=== PATIENT | male | born 1995 | race Caucasian/White ===

== ENCOUNTER 2017-03-25 18:57 | Inpatient (IN) ==
[~2017-03-25 18:57] MED LIST: Aminoglycoside Consult 1 EACH MC ONE
--- NOTE | 2017-03-25 19:20 | Emergency Department Note ---
Disposition Clinical Impression: Abscess, Lymphangitis, Abscess of skin or subcutaneous tissue Cellulitis Qualifiers: Site of cellulitis: extremity Site of cellulitis of extremity: upper extremity Laterality: left Qualified Code(s): L03.114 - Cellulitis of left upper limb Disposition: Admitted As Inpatient Condition: Fair Skin/Abscess/FB HPI Chief complaint: ED Skin/Abscess/Foreign Body Stated complaint: Abscess on L forearm Time Seen by Provider: 03/25/17 19:09 Source: patient, family Limitations: no limitations HPI Narrative: Patient is a 21-year-old male who comes in with 4 day history of left forearm abscess. Patient was seen on 03/23/2017 for left forearm abscess. He was treated with clindamycin by mouth and mupirocin topical ointment. Patient states that the cellulitis has worsened since Saturday. He admits that he is taking his clindamycin as prescribed. Patient complains that cellulitis is now streaking up the arm to mid-upper arm. He complains of left arm pain and stiffness to the biceps muscle. Patient admits that he attempted to drain the abscess using a pocket knife. Patient admits that he has had a recent tetanus shot. Denies fever, chills, nausea, vomiting. Patient denies any limitation to movement of the elbow joint. Tetanus Up to Date: yes Home Medications Medication Instructions Recorded Confirmed Mupirocin [Bactroban Oint] 1 appl TP BID 03/25/17 03/25/17 Previous Rx's Medication Instructions Recorded Clindamycin HCl 300 mg PO TID #21 capsule 03/23/17 Allergies Allergy/AdvReac Type Severity Reaction Status Date / Time No Known Allergies Allergy Verified 03/25/17 18:59 All systems ED: reviewed and negative except as stated. Constitutional: Reports: as per HPI Eyes: Reports: as per HPI ENT ED: Reports: as per HPI Cardiovascular: Reports: as per HPI Respiratory: Reports: as per HPI Gastrointestinal: Reports: as per HPI Genitourinary: Reports: as per HPI Musculoskeletal: Reports: as per HPI Integumentary: Reports: as per HPI Neurological: Reports: as per HPI Psychiatric: Reports: as per HPI Endocrine: Reports: as per HPI Hematological/Lymphatic: Reports: as per HPI Allergic/Immunologic: Reports: as per HPI Past Medical History - Past Medical History Medical history: Reports: no medical history Psychiatric history: Reports: no psych history - Social History Smoking Status: Former smoker Smokeless Tobacco Status: Yes Alcohol use: Reports: none Drug use: Reports: marijuana Physical Exam - General Limitations: no limitations General appearance: alert, in no apparent distress - Head Head exam: atraumatic, normocephalic, normal inspection - Eye Eye exam: Present: normal appearance, EOMI - ENT ENT exam: mucous membranes moist - Neck Neck exam: Present: normal inspection, full ROM, trachea midline. Absent: tenderness, lymphadenopathy, thyromegaly - Chest Chest inspection: Present: normal inspection, symmetric chest wall rise. Absent : tenderness, rash - Respiratory Respiratory exam: Present: normal lung sounds bilaterally. Absent: respiratory distress, wheezes, stridor, accessory muscle use - Cardiovascular Cardiovascular exam: Present: regular rate, normal rhythm, +S1, +S2. Absent: systolic murmur, diastolic murmur - Abdominal Exam Abdominal exam: Present: soft, Non-Tender, normal bowel sounds. Absent: distention, guarding, rebound - Extremities Exam Extremities exam: Present: full ROM - Expanded Lower Extremity Exam Hip/Pelvis exam: Present: full ROM Upper leg exam: Present: full ROM Knee exam: Present: full ROM Lower leg exam: Present: full ROM Ankle exam: Present: full ROM Foot/toe exam: Present: full ROM Neurovascular/Tendon exam: Present: normal capillary refill - Neurological Exam Neurological exam: Present: oriented X3, CN II-XII intact - Psychiatric Psychiatric exam: Present: normal affect, normal mood Course Vital Signs Temperature 99.5 F 03/25/17 18:59 Pulse Rate 72 03/25/17 18:59 Respiratory Rate 15 03/25/17 18:59 Blood Pressure 144/84 03/25/17 18:59 O2 Sat by Pulse Oximetry 98 03/25/17 18:59 Temperature 98.6 F 03/25/17 21:48 Pulse Rate 66 03/25/17 21:48 Respiratory Rate 15 03/25/17 21:48 Blood Pressure 121/71 03/25/17 21:48 O2 Sat by Pulse Oximetry 99 03/25/17 21:48 Oxygen Delivery Oxygen Delivery Room Air Skin/Abscess/Foreign Body - Lab Data Result diagrams: 03/25/17 19:55 03/25/17 19:55 Lab Results 03/25/17 03/25/17 Range/Units 19:55 19:55 WBC 10.0 (4.3-11.1) K/mcL RBC 5.08 (4.19-5.50) M/mcL Hgb 15.2 (12.9-16.9) g/dL Hct 43.4 (37.5-50.1) % MCV 85.4 (83.0-100.0) fL MCH 29.9 (28.0-33.3) pg MCHC 35.0 (31.6-35.5) g/dL RDW 11.8 (11.5-14.5) % Plt Count 240 (140-400) K/mcL MPV 9.1 L (9.4-12.4) fL Immature Gran % 0.2 (0-4) % Seg Neutrophils % 67.0 % Lymphocytes % 23.1 % Monocytes % 8.1 % Eosinophils % 1.3 % Basophils % 0.3 % Neutrophils # 6.7 (1.6-8.9) K/mcL Lymphocytes # 2.3 (0.6-4.6) K/mcL Monocytes # 0.8 (0.0-1.3) K/mcL Eosinophils # 0.1 (0.0-0.6) K/mcL Basophils # 0.0 (0.0-0.2) K/mcL Sodium 141 (136-145) mEq/L Potassium 3.5 (3.5-4.5) mEq/L Chloride 106 (98-109) mEq/L Carbon Dioxide 26 (19-29) mEq/L BUN 10 (8-26) mg/dL Creatinine 0.94 (0.72-1.25) mg/dL Est GFR ( Amer) > 60 (> 60) Est GFR (Non-Af Amer) > 60 (> 60) BUN/Creatinine Ratio 11 (6-26) Glucose 97 (70-99) mg/dL Calculated Osmolality 291 (280-300) Calcium 9.5 (8.6-10.8) mg/dL
--- NOTE | 2017-03-25 19:42 | Emergency Department Note ---
Disposition Clinical Impression: Abscess, Lymphangitis, Abscess of skin or subcutaneous tissue Cellulitis Qualifiers: Site of cellulitis: extremity Site of cellulitis of extremity: upper extremity Laterality: left Qualified Code(s): L03.114 - Cellulitis of left upper limb Disposition: Admitted As Inpatient Condition: Fair Instructions: Cellulitis (ED), Abscess Follow-up (ED) Time of Disposition: 22:00 General Adult HPI - General Chief complaint: ED Skin/Abscess/Foreign Body Stated complaint: Abscess on L forearm Time Seen by Provider: 03/25/17 19:09 Source: patient, family Mode of arrival: ambulatory Limitations: no limitations Nursing Notes Reviewed: Yes Vital Signs Reviewed: Yes - History of Present Illness Pain Scale: 7 - Related Data Home Medications Medication Instructions Recorded Confirmed Mupirocin [Bactroban Oint] 1 appl TP BID 03/25/17 03/25/17 Previous Rx's Medication Instructions Recorded Clindamycin HCl 300 mg PO TID #21 capsule 03/23/17 Allergies Allergy/AdvReac Type Severity Reaction Status Date / Time No Known Allergies Allergy Verified 03/25/17 18:59 Past Medical History - Past Medical History Medical history: Reports: no medical history Psychiatric history: Reports: no psych history - Social History Smoking Status: Former smoker Smokeless Tobacco Status: Yes Alcohol use: Reports: none Drug use: Reports: marijuana Physical Exam - General Limitations: no limitations General appearance: alert, in no apparent distress - Head Head exam: atraumatic, normocephalic, normal inspection - Eye Eye exam: Present: normal appearance, EOMI - ENT ENT exam: normal exam - Neck Neck exam: Present: normal inspection, full ROM, trachea midline. Absent: tenderness, lymphadenopathy - Chest Chest inspection: Present: normal inspection, symmetric chest wall rise. Absent : tenderness, rash - Respiratory Respiratory exam: Present: normal lung sounds bilaterally. Absent: respiratory distress, wheezes - Cardiovascular Cardiovascular exam: Present: regular rate, normal rhythm, +S1, +S2. Absent: systolic murmur, diastolic murmur - Abdominal Exam Abdominal exam: Present: soft, Non-Tender. Absent: distention, guarding - Extremities Exam Extremities exam: Present: full ROM - Expanded Upper Extremity Exam Shoulder exam: Present: full ROM Arm exam: Present: full ROM, tenderness, swelling (swelling present to left extensor forearm. all arm compartments are soft. ), erythema (3cm x 2.5 cm abscess with surrounding erythema and streaking to left extensor forearm. erythema is 14cm at longest dimension in superior-inferior dimension and 12cm in width. ) Elbow exam: Present: full ROM Forearm/Wrist exam: Present: full ROM Hand exam: Present: full ROM Vascular exam: Normal: capillary refill Course Vital Signs Temperature 99.5 F 03/25/17 18:59 Pulse Rate 72 03/25/17 18:59 Respiratory Rate 15 03/25/17 18:59 Blood Pressure 144/84 03/25/17 18:59 O2 Sat by Pulse Oximetry 98 03/25/17 18:59 Temperature 99.5 F 03/25/17 18:59 Pulse Rate 72 03/25/17 18:59 Respiratory Rate 14 03/25/17 21:30 Blood Pressure 130/79 03/25/17 21:30 O2 Sat by Pulse Oximetry 98 03/25/17 18:59 Oxygen Delivery Oxygen Delivery Room Air Procedures - Abscess I/D Consent obtained: verbal consent Site: other (left arm abscess) Side (if applicable): left Local Anesthetic: lidocaine 1%, with epi Amount of Anesthesia Used (mL): 8 Technique: incised with #11 blade Irrigation: No Packing used?: none Complications: bleeding (minimal bleeding, approximately 2mL with purulent drainage) Medical Decision Making - MDM Narrative Medical decision making narrative: Patient presented with increasing cellulitis with lymphangitis to left extensor forearm. Patient states that yesterday he tried to open the abscess with a pocket knife. He has been compliant with oral clindamycin, however he has had worsening cellulitis and lymphangitis despite outpatient therapy. Patient has been afebrile. Abscess was treated with incision and drainage. Since A should not is failed outpatient therapy we will admit him for IV vancomycin. Blood and wound cultures have been obtained. Patient is in stable condition. - Medical Records Medical records reviewed: Yes I reviewed the patient's medical records. - Lab Data Lab results reviewed: Yes I reviewed the patient's lab results. Result diagrams: 03/25/17 19:55 03/25/17 19:55 Attestation Statement - Attestation Attestation: I personally interviewed and examined this patient and my medical decision- making was reviewed with the Resident Physician, Dr. Mcbride. I agree with the documented findings, disposition and treatment plan as described except to the extent set forth below. Patient is a 21-year-old white male who presents to emergency department for the second time since Saturday for a left forearm abscess which is worsening. Patient was seen here initially on Saturday with a cutaneous abscess to the volar surface of the left forearm with some surrounding cellulitis. The area was self treating, no wound cultures were sent, patient was started on clindamycin and mupirocin ointment. Since that time the redness surrounding the abscess has worsened and grown in size and patient has streaking proximally up the left forearm into the mid upper arm. Patient also with some axillary adenopathy. Area is spontaneously draining purulent material with some surrounding induration approximately 1 cm around the open wound. Area does not affect the joint above or below. Patient's compartments of the forearm are soft to palpation and he is neurovascularly intact. Since patient field outpatient antibiotics, we will obtain an IV, obtain blood cultures and wound cultures, perform I&D for adequate drainage. We will obtain baseline labs and start the patient on IV vancomycin and admit the patient for worsening cellulitis secondary to abscess as well as lymphangitis.
[2017-03-25] MEDS ORDERED: Vancomycin 1 EACH in D5% in Water 250 ML IVPB SCH (20:00)
[2017-03-25 20:10] LABS: Basophils % 0.3 %; Eosinophils # 0.1 K/mcL (0.0-0.6); Eosinophils % 1.3 %; Hematocrit 43.4 % (37.5-50.1); Hemoglobin 15.2 g/dL (12.9-16.9); Immature Granulocytes % 0.2 % (0-4); Lymphocytes # 2.3 K/mcL (0.6-4.6); Lymphocytes % 23.1 %; Mean Corpuscular Hemoglobin 29.9 pg (28.0-33.3); Mean Corpuscular Volume 85.4 fL (83.0-100.0); Mean Platelet Volume 9.1 fL (9.4-12.4); Monocytes # 0.8 K/mcL (0.0-1.3); Monocytes % 8.1 %; Neutrophils # 6.7 K/mcL (1.6-8.9); Platelet Count 240 K/mcL (140-400); Red Blood Count 5.08 M/mcL (4.19-5.50); Red Cell Distribution Width 11.8 % (11.5-14.5)
[2017-03-25] MEDS ORDERED: Lidocaine/EPI 1:100k 1% 50 ML VIAL INFILT ONE (20:22)
[2017-03-25 20:26] LABS: BUN/Creatinine Ratio 11 (6-26); Blood Urea Nitrogen 10 mg/dL (8-26); Calcium 9.5 mg/dL (8.6-10.8); Carbon Dioxide 26 mEq/L (19-29); Chloride 106 mEq/L (98-109); Glucose 97 mg/dL (70-99); Osmolality,Calculated 291 (280-300); Potassium 3.5 mEq/L (3.5-4.5); Sodium 141 mEq/L (136-145); eGFR For African Americans > 60 (> 60); eGFR For Non-African Americans > 60 (> 60)
[2017-03-25] MEDS ORDERED: Vancomycin 1,250 MG in D5% in Water 250 ML IVPB ONE (20:34)
--- NOTE | 2017-03-25 21:27 | Internal Med History&Physical ---
Date of Encounter: 03/25/17 Time of Encounter: 21:00 Assessment and Plan (1) Abscess Current visit: Yes Status: Acute 1 patient has a abscess to left forearm which has been there for probably 5 days it was I&D wound cultures obtained as well as blood cultures. Patient does have history of MRSA we will continue with vancomycin 2 patient is a welder shielded metal arc and possible concern of foreign body will obtain CT of left arm 3 continue with [place] for pain (2) Cellulitis Current visit: Yes Status: Acute 1 patient has worsening cellulitis secondary to abscess patient has history of MRSA blood cultures and wound cultures obtained we will continue vancomycin Awaiting culture results Qualifiers: Site of cellulitis: extremity Site of cellulitis of extremity: upper extremity Laterality: left Qualified Code(s): L03.114 - Cellulitis of left upper limb (3) DVT prophylaxis Current visit: Yes Status: Acute [facility] Internal Medicine - H&P: HPI Chief complaint: Abscess on left forearm Admitted From: Emergency Dept Plans for Post Hospital Care: Home History of present illness: Mr. Kaur is a 21 year old male with no past medical history according to the patient partially 5 days ago he said he noticed a small raised area on his left forearm he said he thought it was ingrown hair however as the days progressed it grew larger and red. He decided he was going to attempt to open the wound and he lanced it himself he states that a large amount of yellow pus drained out. He cleansed it with alcohol and continue to self treated however by Saturday it had not improved. He presented to the ER and at that time he was given clindamycin and Bactroban ointment. No wound cultures or blood cultures were obtained at that time and he was discharged home. Since that time the redness surrounding the abscess has worsened and grown in size. The patient noticed that there was streaking proximally up the left forearm into the mid upper arm. Patient presented back to the ER for evaluation. According to ER records patient also had some axillary adenopathy in the area was spontaneous draining per the aunt material. Lab work revealed no leukocytosis he he had temperature of 99.5 on presentation rest of vital signs were stable. The wound was I&D wound cultures as well as blood cultures were obtained. Patient was initiated on IV vancomycin and he has been admitted for further workup and evaluation. Presently the patient denies any pain or discomfort at this time. The patient denies any recent fevers chills nausea vomiting or diarrhea. He does admit that 10 years ago he was treated for MRSA wound on his right arm. 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 Left hand is pink warm with brisk capillary refill strong radial pulses he has streaking proximally up her left forearm into his mid upper arm he has a open wound approximately 1 cm in diameter there is no drainage noted. His forearms are soft to palpation and warm to touch. Presently he is hemodynamically stable. I reviewed this case with who agrees with plan Past Med Surg Social Fam HX - Past Medical History Medical history: no medical history Psychiatric history: no psych history - Social History Smoking Status: Former smoker Smokeless Tobacco Status: Yes Alcohol use: none Drug use: marijuana - Family History Mother Living Status: Still Living Hx Family Cardiac Disorders: Yes (Heart disease) Internal Medicine - H&P: Meds Clindamycin HCl 300 mg PO TID #21 capsule 03/23/17 [Rx] Mupirocin [Bactroban Oint] 1 appl TP BID 03/25/17 [History] Allergies No Known Allergies Allergy (Verified 03/25/17 18:59) All Systems PM: A 10-system review of systems was performed and is negative for pertinent findings except as documented above in the HPI. - Constitutional Constitutional: no chills, no fever(s), no night sweats - EENT Eyes: no change in vision, no discharge, no pain, no photophobia Nose, mouth and throat: no dysphagia, no nasal discharge, no neck pain, no sore throat - Cardiovascular Cardiovascular ROS IM: no chest pain, no diaphoresis, no dyspnea, no lightheadedness, no palpitations, no syncope - Respiratory Respiratory: no cough, no dyspnea, no wheezing, no excessive phlegm production - Gastrointestinal Gastrointestinal: no abdominal pain, no diarrhea, no hematemesis, no hematochezia, no melena, no nausea, no vomiting - Musculoskeletal Musculoskeletal ROS IM: no numbness, no tingling - Integumentary Integumentary IM: erythema, new lesions, non-healing lesions - Neurological Neurological ROS: no confusion, no convulsions, no focal weakness, no numbness, no tingling, no tremor(s) - Hematologic/Lymphatic Hematologic/Lymphatic: no easy bruising - Constitutional Vitals: Temp Pulse Resp BP Pulse Ox 99.5 F 72 15 144/84 98 03/25/17 18:59 03/25/17 18:59 03/25/17 18:59 03/25/17 18:59 03/25/17 18:59 General appearance: Present: A&O X 3 - Head Head exam: Present: atraumatic, normocephalic - Eye Eye exam: Present: PERRL, conjuntiva pink, sclera anicteric Pupils: Present: PERRL - Neck Neck exam general surgery: Present: supple, trachea midline. Absent: lymphadenopathy - Respiratory Respiratory exam: Present: CTAB. Absent: accessory muscle use, rales, rhonchi, wheezes - Cardiovascular Cardiovascular exam: Present: RRR, +S1, +S2. Absent: diastolic murmur, gallop, rubs, systolic murmur - GI/Abdominal GI/Abdominal exam: Present: normal bowel sounds, soft, no peritoneal signs. Absent: distended, tenderness - Extremities Exam Extremities exam: Present: warm, radial pulses palpable and symetrical. Absent : calf tenderness, cyanotic, pedal edema - Neurological Exam Neurological exam: Present: CN II-XII intact, oriented X3, no focal deficits. Absent: pronater drift, facial droop, speech deficit - Skin Skin exam: Present: dry, intact Internal Med - H&P Results - Labs CBC & Chem 7: 03/25/17 19:55 03/25/17 19:55 Labs: Short CBC 03/25/17 Range/Units 19:55 WBC 10.0 (4.3-11.1) K/mcL Hgb 15.2 (12.9-16.9) g/dL Hct 43.4 (37.5-50.1) % Plt Count 240 (140-400) K/mcL Neutrophils # 6.7 (1.6-8.9) K/mcL BMP 03/25/17 19:55 Sodium 141 Potassium 3.5 Chloride 106 Carbon Dioxide 26 BUN 10 Creatinine 0.94 Glucose 97 Calcium 9.5
[2017-03-25] MEDS ORDERED: *HR* HYDROcodone/Acet 5/325 mg TABLET PO PRN (21:28)
[2017-03-25] MEDS ORDERED: Naloxone 0.4 MG/ML INJ IVP PRN (21:28)
[2017-03-25] MEDS ORDERED: Acetaminophen 325 MG TABLET PO PRN (21:28)
[2017-03-25] MEDS ORDERED: Ondansetron 4 MG/2 ML VIAL IVP PRN (21:28)
[2017-03-25] MEDS: Clindamycin 600 MG/50 ML 600 MG/50 ML IV.SOLN IVPB SCH (23:51)
[2017-03-26 05:37] LABS: Basophils % 0.5 %; Eosinophils # 0.1 K/mcL (0.0-0.6); Eosinophils % 1.3 %; Hematocrit 43.1 % (37.5-50.1); Hemoglobin 14.5 g/dL (12.9-16.9); Immature Granulocytes % 0.3 % (0-4); Lymphocytes # 1.8 K/mcL (0.6-4.6); Mean Corpuscular HGB Conc 33.6 g/dL (31.6-35.5); Mean Corpuscular Hemoglobin 28.9 pg (28.0-33.3); Mean Corpuscular Volume 85.9 fL (83.0-100.0); Mean Platelet Volume 9.1 fL (9.4-12.4); Monocytes # 0.9 K/mcL (0.0-1.3); Monocytes % 11.8 %; Platelet Count 230 K/mcL (140-400); Red Blood Count 5.02 M/mcL (4.19-5.50); Red Cell Distribution Width 11.8 % (11.5-14.5); Segmented Neutrophils % 63.1 %
[2017-03-26] MEDS ORDERED: Vancomycin (wt based) 1,000 MG VIAL IVPB SCH (09:00)
[2017-03-26] MEDS: Clindamycin 600 MG/50 ML 600 MG/50 ML IV.SOLN IVPB SCH (09:15)
[2017-03-26] MEDS: Lactobacillus 1 EACH CAP.SPRINK PO SCH ×2 (09:16→22:17)
--- NOTE | 2017-03-26 14:49 | Internal Med Progress Note ---
Date of Encounter: 03/26/17 Time of Encounter: 14:46 - Assessment and plan (1) Abscess Current Visit: Yes Status: Acute Assessment and plan: left acute forearm abscess, failed outpatient clindamycin CT evidenced abscess received vancomycin (developed rash) discontinue clindamycin as it did not work as outpatient start doxycycline IV call surgery consider draining high risk due to failed outpatient therapy (2) Cellulitis Current Visit: Yes Status: Acute Qualifiers: Site of cellulitis: extremity Site of cellulitis of extremity: upper extremity Laterality: left Qualified Code(s): L03.114 - Cellulitis of left upper limb (3) Lymphangitis Current Visit: Yes Status: Acute - Subjective Interval history: no cp , no SOB, no fever or abdominal pain , no dysuria, no nausea, has mild pain on his left forearm - Constitutional Vitals: Temp Pulse Resp BP Pulse Ox 98.6 F 59 17 110/61 97 03/26/17 10:30 03/26/17 10:30 03/26/17 10:30 03/26/17 10:30 03/26/17 10:30 General appearance: Present: A&O X 3 - Head Head exam: Present: atraumatic, normocephalic - Eye Eye exam: Present: PERRL, conjuntiva pink, sclera anicteric Pupils: Present: PERRL - Neck Neck exam general surgery: Present: supple, trachea midline. Absent: lymphadenopathy - Respiratory Respiratory exam: Present: CTAB. Absent: accessory muscle use, rales, rhonchi, wheezes - Cardiovascular Cardiovascular exam: Present: RRR, +S1, +S2. Absent: diastolic murmur, gallop, rubs, systolic murmur - GI/Abdominal GI/Abdominal exam: Present: normal bowel sounds, soft, no peritoneal signs. Absent: distended, tenderness - Extremities Exam Extremities exam: Present: warm, radial pulses palpable and symetrical. Absent : calf tenderness, cyanotic, pedal edema - Neurological Exam Neurological exam: Present: CN II-XII intact, oriented X3, no focal deficits. Absent: pronater drift, facial droop, speech deficit - Skin Skin exam: Present: dry. Absent: intact (left forearm ulcer/abscess surrounded by cellulitis/erythema) Internal Medicine: Result - Labs CBC & Chem 7: 03/26/17 05:10 03/25/17 19:55 Labs: Short CBC 03/26/17 Range/Units 05:10 WBC 7.9 (4.3-11.1) K/mcL Hgb 14.5 (12.9-16.9) g/dL Hct 43.1 (37.5-50.1) % Plt Count 230 (140-400) K/mcL Neutrophils # 5.0 (1.6-8.9) K/mcL - Impressions Impressions Forearm CT 03/26/17 07:30 IMPRESSION: Cellulitis along the ulnar aspect of the left forearm with small subcutaneous/cutaneous abscess measuring 9 x 10 x 10 mm in size in the mid forearm. No acute bone or joint abnormality. The findings were sent to the Radiology Results [facility] at 8:36 am on 03/26/2017to be communicated to a licensed caregiver. D/ / 03/26/2017 08:53:23 Lavell Diggs MD / [email or web address] Interpreting Provider: Lavell Diggs MD Consult Discharge Plan - Plan Instructions: Cellulitis (ED), Abscess Follow-up (ED) Referrals: Evelio Hyatt [Non-Partnered Physician] - 03/29/17 1:15 pm (Please bring your photo ID, insurance card, any medications you are on, and the new patient packet you will receive in the mail. If you have to cancel, please give a 24 hour notice or they do not have to take you back.)
[2017-03-26] MEDS ORDERED: *HR* HYDROmorphone (PF) 1 MG/ML SYRINGE IVP ONE (15:03)
[2017-03-26] MEDS: Doxycycline 100 MG in 0.9 % Sodium Chloride Mini Bag 100 ML IVPB SCH (15:22)
--- NOTE | 2017-03-26 15:22 | General Surgery Consult Note ---
Date of Encounter: 03/26/17 Time of Encounter: 15:20 Assessment and Plan (1) Abscess of left upper extremity Current Visit: Yes Status: Acute Left forearm reopened at the bedside with pick-ups and scissors Small amount of purulent drainage noted Wound care- cleanse with soap and water daily, pack with 1/4 inch plain gauze, cover with 4X4 and tape to secure daily Continue packing for 1 week Antibiotics per the hospitalist History of Present Illness Consult date: 03/26/17 Reason for consult: other (Left forearm abscess/cellulitis) Requesting physician: José Fernandez History of present illness: Mr. Kaur is a 21 year old male with no significant medical problems who presented to the ED with complaints of LUE abscess. He states that it has been present for 6 days. He did take outpatient oral antibiotics and did attempt to open the area with a pocket knife. He states that the area continued to become more reddened and painful and he presented for evaluation. He was admitted for failed outpatient therapy. He was placed on IV antibiotics and the area was opened and drained however it was not packed. He states that he has had an area similar to this on his right elbow last year and was treated for MRSA. He denies any fevers/chills. He has had a CT of the LUE this morning which shows undrained fluid within the foream. We have been asked to see and evaluate the patient for recommendations. Past Med Surg Social Fam HX - Past Medical History Source: patient Medical history: no medical history Psychiatric history: no psych history - Past Surgical History Surgical History: other (Tonsillectomy) - Social History Smoking Status: Former smoker Smokeless Tobacco Status: Yes Alcohol use: none Drug use: marijuana Occupational status: employed Current living situation: Home - Independent Activity Level: Independent ambulation Recent Out of Country Travel Within the Last 8 Weeks: No Exposure or Possible Exposure to Illness During Travel: No - Family History Mother Living Status: Still Living Hx Family Cardiac Disorders: Yes (Heart disease) Medications and Allergies Clindamycin HCl 300 mg PO TID #21 capsule 03/23/17 [Rx] Mupirocin [Bactroban Oint] 1 appl TP BID 03/25/17 [History] Allergies vancomycin Allergy (Verified 03/25/17 22:54) Hives Review of Systems All systems PM: reviewed and no additional remarkable complaints except as stated (in the HPI) All systems PM: A 10-system review of systems was performed and is negative for pertinent findings except as documented above in the HPI. General Surgery Exam Initial Vital Signs Temp Pulse Resp BP Pulse Ox 99.5 F 72 15 144/84 98 03/25/17 18:59 03/25/17 18:59 03/25/17 18:59 03/25/17 18:59 03/25/17 18:59 - General physical appearance well developed, well nourished, no distress - Eyes normal ocular movement - ENT normal mucosa, atraumatic, normocephalic - Neck trachea midline - Respiratory normal respiratory effort - Cardiovascular Cardiovascular exam: Present: RRR - Abdomen Abdomen general surgery: Present: soft, non tender - Incision Incision: Present: erythema, purulent, indurated, open (left forearm) - Integumentary Integumentary general surgery: Present: warm and dry - Neurologic Present: CN 2-12 grossly intact - Musculoskeletal Present: normal gait, normal posture - Psychiatric Psychiatric general surgery: Present: appropriate, oriented to person, oriented to place, oriented to time, speech is normal, memory intact Exam Initial Vital Signs Temp Pulse Resp BP Pulse Ox 99.5 F 72 15 144/84 98 03/25/17 18:59 03/25/17 18:59 03/25/17 18:59 03/25/17 18:59 03/25/17 18:59 Results - Labs 03/26/17 05:10 03/25/17 19:55 Abnormal lab results MPV 9.1 fL (9.4-12.4) L 03/26/17 05:10 All other labs normal. - Imaging Additional studies: Forearm CT 03/26/17 07:30 IMPRESSION: Cellulitis along the ulnar aspect of the left forearm with small subcutaneous/cutaneous abscess measuring 9 x 10 x 10 mm in size in the mid forearm. No acute bone or joint abnormality. The findings were sent to the [facility]iology [facility] at 8:36 am on 03/26/2017to be communicated to a licensed caregiver. D/ / 03/26/2017 08:53:23 Lavell Diggs MD / fahad Interpreting Provider: Lavell Diggs MD Consult Discharge Plan - Plan Instructions: Cellulitis (ED), Abscess Follow-up (ED) Additional Instructions: Surgical instructions: #1 May shower #2 Wash wound with soap and water and pat dry, pack with 1/4 inch iodoform packing after showers and cover with 4X4 gauze, tape to secure daily May stop packing 04/02/17. Referrals: Candice Rubin CNP [Advanced Practice Nurse] - (as needed) Evelio Hyatt [Non-Partnered Physician] - 03/29/17 1:15 pm (Please bring your photo ID, insurance card, any medications you are on, and the new patient packet you will receive in the mail. If you have to cancel, please give a 24 hour notice or they do not have to take you back.)
[2017-03-26] MEDS ORDERED: Melatonin 3 MG TABLET PO PRN (18:26)
[2017-03-27] MEDS: Doxycycline 100 MG in 0.9 % Sodium Chloride Mini Bag 100 ML IVPB SCH (03:02)
[2017-03-27 06:30] LABS: Hematocrit 43.5 % (37.5-50.1); Hemoglobin 15.2 g/dL (12.9-16.9); Mean Corpuscular HGB Conc 34.9 g/dL (31.6-35.5); Mean Corpuscular Hemoglobin 30.1 pg (28.0-33.3); Mean Corpuscular Volume 86.1 fL (83.0-100.0); Mean Platelet Volume 9.1 fL (9.4-12.4); Platelet Count 220 K/mcL (140-400); Red Blood Count 5.05 M/mcL (4.19-5.50); Red Cell Distribution Width 12.1 % (11.5-14.5)
[2017-03-27 06:42] LABS: BUN/Creatinine Ratio 14 (6-26); Blood Urea Nitrogen 12 mg/dL (8-26); Calcium 9.1 mg/dL (8.6-10.8); Carbon Dioxide 23 mEq/L (19-29); Chloride 110 mEq/L (98-109); Glucose 98 mg/dL (70-99); Osmolality,Calculated 294 (280-300); Potassium 3.6 mEq/L (3.5-4.5); Sodium 142 mEq/L (136-145); eGFR For African Americans > 60 (> 60); eGFR For Non-African Americans > 60 (> 60)
[2017-03-27 08:03] VITALS: BP 110/66
[2017-03-27] MEDS: Lactobacillus 1 EACH CAP.SPRINK PO SCH (08:23)
--- NOTE | 2017-03-27 08:54 | Discharge Summary ---
Date of Encounter: 03/27/17 Time of Encounter: 08:51 - Discharge Diagnosis (1) Abscess Priority: Primary Status: Acute Comments: left acute forearm abscess, failed outpatient clindamycin, s/p I and D CT evidenced persistent 1 cm in diameter abscess (2) Cellulitis Priority: Primary Status: Acute Qualifiers: Site of cellulitis: extremity Site of cellulitis of extremity: upper extremity Laterality: left Qualified Code(s): L03.114 - Cellulitis of left upper limb (3) Lymphangitis Priority: Primary Status: Acute - Discharge Medications Prescriptions: Doxycycline 100 mg PO BID #12 capsule Home Medications: Acetaminophen [Tylenol] 650 mg PO Q6HR PRN #0 tablet 03/27/17 [Rx] Doxycycline 100 mg PO BID #12 capsule 03/27/17 [Rx] Allergies/Adverse Reactions: Allergies vancomycin Allergy (Verified 03/25/17 22:54) Hives Procedures/tests Complete & Pending: Procedures Performed prior 72 hours Category Date Time Status CT forearm LT wo con [CT] Stat Cat Scan 03/26/17 07:30 Draft Date of admission: 03/25/17 21:25 Primary care physician: PCP NO Consults: 03/26/17 14:53 Consult to Surgery [CONS] Routine Consulting Provider: Beth Springer Reason for Consult: left forearm abscess Call Completed: Yes - Patient Status Disposition: Home, Self-Care Condition: Good Overall status at discharge: patient is back to baseline - Discharge Instructions Instructions: Cellulitis (ED), Abscess Follow-up (ED) Follow Up With: Ivan Zaragoza DO [Resident] - 03/29/17 1:30 pm Candice Rubin CNP [Advanced Practice Nurse] - (as needed) Evelio Hyatt [Non-Partnered Physician] - 03/29/17 1:15 pm (Please bring your photo ID, insurance card, any medications you are on, and the new patient packet you will receive in the mail. If you have to cancel, please give a 24 hour notice or they do not have to take you back.) Additional Instructions: Follow with primary care physician within 7 days. COmplete 6 days of doxycycline. Follow up with surgery service for packing as outpatient. Avoid sun exposure. Surgical instructions: #1 May shower #2 Wash wound with soap and water and pat dry, pack with 1/4 inch iodoform packing after showers and cover with 4X4 gauze, tape to secure daily May stop packing 04/02/17. - Diet and Activity Activity: increase activity as tolerated Diet: regular diet Hospital course: Mr. Kaur is a 21 year old male with no significant medical problems who presented to the ED with complaints of LUE abscess. He stated that it has been present for 6 days. He did take outpatient oral antibiotics (clindamycin) and did attempt to open the area with a pocket knife. He states that the area continued to become more reddened and painful and he presented for evaluation. He was admitted for failed outpatient therapy. He was placed on IV antibiotics and the area was opened and drained however it was not packed. He states that he has had an area similar to this on his right elbow last year and was treated for MRSA. He denies any fevers/chills. He has had a CT of the LUE this morning which shows undrained fluid within the foream. Received a dose of vancomycin but it was discontinued due to a rash. Clindamycin was switched to doxycycline. The surgery service performed an I and D. The patient has improved considerably. Was given the option to stay another day as the sensitivity is not ready yet but he prefers to be discharged on oral doxyxycline. Risks were explained. I will call him if the antibiotic therapy needs to be changed depending on the sensitivity - Time Spent with Patient Total time spent providing and/or coordinating discharge services: Greater than 30 minutes (40 min) - Constitutional Vitals: Temp Pulse Resp BP Pulse Ox 98.5 F 60 16 110/66 98 03/27/17 07:59 03/27/17 07:59 03/27/17 07:59 03/27/17 07:59 03/27/17 08:00 General appearance: Present: A&O X 3 - Head Head exam: Present: atraumatic, normocephalic - Eye Eye exam: Present: PERRL, conjuntiva pink, sclera anicteric Pupils: Present: PERRL - Neck Neck exam general surgery: Present: supple, trachea midline. Absent: lymphadenopathy - Respiratory Respiratory exam: Present: CTAB. Absent: accessory muscle use, rales, rhonchi, wheezes - Cardiovascular Cardiovascular exam: Present: RRR, +S1, +S2. Absent: diastolic murmur, gallop, rubs, systolic murmur - GI/Abdominal GI/Abdominal exam: Present: normal bowel sounds, soft, no peritoneal signs. Absent: distended, tenderness - Extremities Exam Extremities exam: Present: warm, radial pulses palpable and symetrical. Absent : calf tenderness, cyanotic, pedal edema - Neurological Exam Neurological exam: Present: CN II-XII intact, oriented X3, no focal deficits. Absent: pronater drift, facial droop, speech deficit - Skin Skin exam: Present: dry. Absent: intact (left forearms 1 cm open ulcer pached, erythema has improved , lymphangitis dissapeared )
--- NOTE | 2017-03-27 10:18 | General Surgery Progress Note ---
Date of Encounter: 03/27/17 Time of Encounter: 10:16 - Assessment and Plan (1) Abscess of left upper extremity Current Visit: Yes Status: Acute Left forearm reopened at the bedside with pick-ups and scissors on 03/26 Wound has been packed with iodoform. Patient notes packing came out last evening and had to be repacked. Wound was also repacked today with clean iodoform packing and covered. The wound is erythemetous, but this is much improved compared to yesterday. Patient was provided with appropriate wound care instruction and has appropriate follow up. Plan: Wound care- cleanse with soap and water daily, pack with 1/4 inch plain gauze, cover with 4X4 and tape to secure daily Continue packing for 1 week Antibiotics per the hospitalist Subjective Patient reports: feels better, pain is less Narrative: Patient seen and examined. He states that he still has some pain, but that it is much better. The redness is much better on his arm as well. He notes that the iodoform packing came out yesterday and he had to put in new packing. Objective Vital Signs - Last 8 Hours Temp Pulse Resp BP Pulse Ox 03/27/17 08:00 98 03/27/17 07:59 98.5 F 60 16 110/66 98 Intake and Output 03/26/17 03/27/17 03/27/17 23:59 07:59 15:59 Intake Total 460 / 460 100 / 100 0 / 0 Output Total 0 / 0 Balance 460 / 460 100 / 100 0 / 0 Intake: IV Fluids 100 / 100 100 / 100 Doxycycline 100 MG In 0.9 100 / 100 100 / 100 % Sodium Chloride (Mini- Bag +) 100 ML @ 100 mls/ hr IVPB Q12H [facility] Rx#: [id number] Oral 360 / 360 0 / 0 0 / 0 Output: Urine 0 / 0 Other: Meal Dinner Breakfast Percent of Meal Consumed 100% 0% # Voids 1 - General physical appearance well developed, well nourished, no distress - Eyes PERRL, normal ocular movement - ENT atraumatic, normocephalic - Neck Neck exam: no masses, trachea midline - Respiratory normal expansion, normal respiratory effort, clear to auscultation - Cardiovascular Cardiovascular exam: Present: RRR, no murmurs/rubs/gallops - Abdomen Abdomen: Present: bowel sounds present, soft, non tender - Incision Incision: Present: draining (left forearm, packed with iodoform), erythema, open (packed with iodoform) - Musculoskeletal normal gait, normal posture - Psychiatric oriented to time, oriented to person, oriented to place, speech is normal, memory intact - Labs 03/27/17 05:55 03/27/17 05:55 Diabetes panel 03/27/17 Range/Units 05:55 Sodium 142 (136-145) mEq/L Potassium 3.6 (3.5-4.5) mEq/L Chloride 110 H (98-109) mEq/L Carbon Dioxide 23 (19-29) mEq/L BUN 12 (8-26) mg/dL Creatinine 0.88 (0.72-1.25) mg/dL Glucose 98 (70-99) mg/dL Calcium 9.1 (8.6-10.8) mg/dL Calcium panel 03/27/17 Range/Units 05:55 Calcium 9.1 (8.6-10.8) mg/dL Pituitary panel 03/27/17 Range/Units 05:55 Sodium 142 (136-145) mEq/L Potassium 3.6 (3.5-4.5) mEq/L Chloride 110 H (98-109) mEq/L Carbon Dioxide 23 (19-29) mEq/L BUN 12 (8-26) mg/dL Creatinine 0.88 (0.72-1.25) mg/dL Glucose 98 (70-99) mg/dL Calcium 9.1 (8.6-10.8) mg/dL Adrenal panel 03/27/17 Range/Units 05:55 Sodium 142 (136-145) mEq/L Potassium 3.6 (3.5-4.5) mEq/L Chloride 110 H (98-109) mEq/L Carbon Dioxide 23 (19-29) mEq/L BUN 12 (8-26) mg/dL Creatinine 0.88 (0.72-1.25) mg/dL Glucose 98 (70-99) mg/dL Calcium 9.1 (8.6-10.8) mg/dL Consult Discharge Plan - Plan Instructions: Cellulitis (ED), Abscess Follow-up (ED) Additional Instructions: Follow with primary care physician within 7 days. COmplete 6 days of doxycycline. Follow up with surgery service for packing as outpatient. Avoid sun exposure. Surgical instructions: #1 May shower #2 Wash wound with soap and water and pat dry, pack with 1/4 inch iodoform packing after showers and cover with 4X4 gauze, tape to secure daily May stop packing 04/02/17. Referrals: Ivan Zaragoza DO [Resident] - 03/29/17 1:30 pm Candice Rubin, [employer] COORDINATOR [Advanced Practice Nurse] - (as needed) Prescriptions: Doxycycline 100 mg PO BID #12 capsule
== END 2017-03-27 10:30 | disposition home or self-care (01) | DRG 603 ==
LOC: EMEROO 18:57 → 3ANU 18:57 → SUATTDRO 21:25 → 3ANU 21:31
PROVIDERS: ADMIT Internal Medicine; ATTEND Internal Medicine